=== PATIENT | male | born 1945 | race Caucasian/White ===

== ENCOUNTER 2017-02-05 16:39 | Inpatient (IN) | payer MEDICARE ==
[~2017-02-05] VITALS: Ht 180.3 cm; Wt 106.6 kg
[~2017-02-05 16:39] MED LIST: AMITRIPTYLINE H10 MG PO; ENBREL50 MG/1 ML IM; IRON SUPPLEMEN325 MG PO; LYRICA75 MG PO; NEXIUM40 MG PO; PEPTO-BISM262 MG/15; ULTRAM50 MG PO; VESICARE5 MG PO; VITAMIN B12-FO1 EACH PO; VITAMIN D2000 UNIT PO; ZANAFLEX2 M1 PO; ZANTAC150 MG PO
[2017-02-05] MEDS ORDERED: ASPIRIN 81 MG CHEW TAB PO ONE (18:15)
[2017-02-05 18:34] LABS: CLARITY,URINE CLOUDY (CLEAR); KETONES,URINE TRACE (NEGATIVE); LEUKOCYTE ESTERASE ,URINE 2+ (NEGATIVE); URINE UROBILINOGEN 0.2 mg/dL (0.2 - 1)
[2017-02-05 18:35] LABS: BILIRUBIN,URINE 1+ (NEGATIVE); NITRITE,URINE POSITIVE (NEGATIVE); PROTEIN,URINE DIPSTICK 1+ (NEGATIVE)
[2017-02-05 18:45] LABS: BACTERIA,URINE MANY /HPF; COLOR,URINE AMBER (YELLOW); EPITHELIAL CELLS,URINE RARE /LPF; MUCUS,URINE FEW (RARE); RBC,URINE 21-50 /HPF (0-5); WBC,URINE (MAN) 21-50 /HPF (0-5)
[2017-02-05 18:56] LABS: BASOPHILS % 0.2 % (0.0-1.0); HEMATOCRIT 35.7 % (38.2-49.6); HEMOGLOBIN 11.4 g/dL (14.0-18.0); LYMPHOCYTES # (AUTO) 0.7 (1.0-3.2); LYMPHOCYTES % 7.6 % (18.0-39.1); MEAN CORPUSCULAR HEMOGLOBIN 29.8 pg (28-32); MEAN CORPUSCULAR HGB CONC 31.9 g/dL (31-35); MEAN CORPUSCULAR VOLUME 93.5 fL (81-99); NEUTROPHILS % 81.9 % (38.7-80.0); PLATELET COUNT 174 x10e3/uL (140-360); RED BLOOD COUNT 3.82 x10e6/uL (4.3-5.7); RED CELL DISTRIBUTION WIDTH 14.8 % (11.7-14.4)
--- NOTE | 2017-02-05 19:17 | Diagnostic Imaging Report ---
EXAMINATION: Chest, CHEST 2 VIEWS INDICATION: Dehydration. COMPARISON: Portable chest 12/06/2015 FINDINGS: LINES: None. Heart: Normal cardiac silhouette. Vascular: The pulmonary vasculature is within normal limits. Mediastinum: No mediastinal, hilar, or axillary mass or lymphadenopathy. Lungs: No parenchymal mass. No focal consolidation. Pleura: No pleural effusion. No pneumothorax. Bones: No acute osseous abnormality. Degenerative changes of the thoracic spine. Soft tissues: Normal. Impression: No acute radiographic abnormality. Signed by: Dr. Yuri Spears M.D. on 02/05/2017 7:13 PM
[2017-02-05 19:20] LABS: CREATINE KINASE MB 0.9 ng/mL (0.00-5.00)
[2017-02-05 19:29] LABS: ALBUMIN 3.5 g/dL (3.5-5.0); ALBUMIN/GLOBULIN RATIO 0.9 (0.8-2.0); ANION GAP 16.9 mmol/L (8-16); CALCIUM 8.9 mg/dL (8.4-10.2); CREATININE, SERUM 1.3 mg/dL (0.72-1.25); POTASSIUM 3.9 mmol/L (3.5-5.1)
[2017-02-05] MEDS ORDERED: CEFTRIAXONE SOD 1 GM VIAL IV STA (19:29)
[2017-02-05] MEDS ORDERED: SODIUM CHLORIDE 0.9% 1000ML 1,000 ML IV ONE (19:30)
[2017-02-05] MEDS ORDERED: ACETAMINOPHEN 1000 MG/100 ML IV ONE (20:00)
--- NOTE | 2017-02-05 21:08 | Diagnostic Imaging Report ---
EXAM: CT Abdomen and Pelvis WITHOUT contrast INDICATION: Abdominal pain COMPARISON: None. TECHNIQUE: Abdomen and pelvis were scanned utilizing a multidetector helical scanner from the lung base to the pubic symphysis. Coronal and sagittal reformations were obtained. The lack of intravenous contrast limits the evaluation of the solid organs, vasculature, and possible lymphadenopathy. Protocol: General survey without contrast IV CONTRAST: No intravenous contrast was administered as per physician request. ORAL CONTRAST: None. COMPLICATIONS: None. RADIATION DOSE: Total Exam DLP: 812.5 mGy*cm. CTDIvol has been reviewed. It is below the limits set by the Radiation Protocol Committee (RPC). FINDINGS: LINES: None. Lower thorax: No parenchymal abnormality. No pneumothorax. No pleural effusion. Liver: No focal mass. No hepatomegaly. Normal parenchyma. Gallbladder: No gallbladder is identified. Biliary tree: No intrahepatic duct dilation. No extrahepatic duct dilation. Spleen: No splenomegaly. No focal mass. Pancreas: No focal mass. Normal pancreatic duct. No peripancreatic inflammatory changes. Kidneys: No obstructing calculi. No hydronephrosis. No cysts. Minimal bilateral perinephric soft tissue inflammatory changes. A right ureteral stent is present with the distal coil within the urinary bladder and the proximal coil within the renal pelvis. Several punctate calculi are present in the right kidney. The right renal pelvis is prominent, without evidence of hydronephrosis. Adrenal glands: No adrenal nodules.. Bladder: Normal urinary bladder. Pelvic organs: Normal. GI: Postoperative changes of the stomach. No bowel wall thickening. No air-fluid levels. The stomach and small bowel are normal. The colon is normal. Normal appendix. A moderate amount of retained feces limits intraluminal evaluation of the colon. Peritoneum/retroperitoneum: No pneumoperitoneum. No ascites. No drainable fluid collection. Lymph nodes: No lymphadenopathy. . Vessels: No focal abnormality. Atherosclerotic calcifications. Limited evaluation. Bones: No focal abnormality. Degenerative changes of the lumbar spine. Soft tissues: No focal abnormality. IMPRESSION: Right nonobstructing nephrolithiasis. Right ureteral stent in proper position. Signed by: Dr. Yuri Spears M.D. on 02/05/2017 9:04 PM
[2017-02-05] MEDS ORDERED: TRAMADOL HCL 50 MG TAB PO PRN (21:30)
[2017-02-05] MEDS: CEFTRIAXONE SOD 1 GM VIAL IV SCH (22:00)
[2017-02-05] MEDS: SODIUM CHLORIDE 0.9% 1000ML 1,000 ML IV SCH (22:32)
[2017-02-05] MEDS ORDERED: ACETAMINOPHEN 325 MG TAB PO PRN (22:45)
[2017-02-05] MEDS: ROPINIROLE HCL 1 MG TAB PO SCH (23:01)
[2017-02-05 23:34] VITALS: BP 171/89
[2017-02-06 00:42] VITALS: BP 171/89
[2017-02-06] MEDS: ONDANSETRON HCL INJ 2 MG/ML VIAL IV PRN ×2 (00:42→18:45)
[2017-02-06] MEDS: SODIUM CHLORIDE 0.9% 1000ML 1,000 ML IV SCH ×4 (00:42→20:45)
[2017-02-06 05:01] VITALS: BP 164/88
[2017-02-06 07:10] LABS: BASOPHILS % 0.3 % (0.0-1.0); EOSINOPHILS % 0.1 % (0.0-6.0); HEMATOCRIT 32.7 % (38.2-49.6); HEMOGLOBIN 10.3 g/dL (14.0-18.0); LYMPHOCYTES # (AUTO) 0.7 (1.0-3.2); LYMPHOCYTES % 9.2 % (18.0-39.1); MEAN CORPUSCULAR HEMOGLOBIN 29.5 pg (28-32); MEAN CORPUSCULAR HGB CONC 31.5 g/dL (31-35); MEAN CORPUSCULAR VOLUME 93.7 fL (81-99); MONOCYTES # (AUTO) 0.9 (0.2-0.8); MONOCYTES % 12.1 % (4.4-11.3); PLATELET COUNT 149 x10e3/uL (140-360); RED BLOOD COUNT 3.49 x10e6/uL (4.3-5.7); RED CELL DISTRIBUTION WIDTH 14.6 % (11.7-14.4)
[2017-02-06 07:37] LABS: ALANINE AMINOTRANSFERASE 21 IU/L (0-55); ALBUMIN/GLOBULIN RATIO 0.9 (0.8-2.0); ALKALINE PHOSPHATASE 58 IU/L (40-150); ANION GAP 11.4 mmol/L (8-16); BLOOD UREA NITROGEN 18 mg/dL (7-26); BUN/CREATININE RATIO 17 (6-25); CALCIUM 8.3 mg/dL (8.4-10.2); CARBON DIOXIDE 26 mmol/L (22-29); CHLORIDE 105 mmol/L (98-107); CREATININE, SERUM 1.03 mg/dL (0.72-1.25); EST GLOMERULAR FILTRATION RATE > 60 ML/MIN (60-); GLUCOSE 110 mg/dL (74-118); POTASSIUM 3.4 mmol/L (3.5-5.1); SODIUM 139 mmol/L (136-145)
[2017-02-06 08:16] LABS: CHOL/HDL RATIO 3.8 (3.9-4.7)
[2017-02-06] MEDS: PANTOPRAZOLE SOD 40 MG TABEC PO SCH (09:00)
[2017-02-06] MEDS: AMITRIPTYLINE HCL 10 MG TAB PO SCH (09:00)
[2017-02-06] MEDS: FERROUS SULFATE 325 MG TAB PO SCH (09:00)
[2017-02-06] MEDS: CHOLECALCIFEROL 1,000 UNIT TAB PO SCH (09:00)
[2017-02-06] MEDS: SOLIFENACIN SUCCINATE 5 MG TAB PO SCH (09:00)
[2017-02-06] MEDS: FOLIC ACID/CYANOCOB/PYRIDOXINE TAB PO SCH (09:00)
[2017-02-06] MEDS: PREGABALIN 75 MG CAP PO SCH (09:00)
[2017-02-06] MEDS: TIZANIDINE HCL 4 MG TAB PO SCH (09:00)
[2017-02-06] MEDS ORDERED: FAMOTIDINE 20 MG TAB PO SCH (09:00)
[2017-02-06 09:26] VITALS: BP 164/84
[2017-02-06 12:11] VITALS: BP 121/67
--- NOTE | 2017-02-06 16:24 | History and Physical ---
PRIMARY CARE PHYSICIAN: Dr. Kaye. CHIEF COMPLAINT: Burning urination. HISTORY OF PRESENT ILLNESS: This is a 72-year-old man with a history of nephrolithiasis and right renal stent now developing burning urination for one week without any fever, chills or sweats. No nausea, vomiting, no diarrhea. He came to the hospital for further evaluation and management. Here he was found to have urinary tract infection. PAST MEDICAL HISTORY: Right-sided nephrolithiasis, status post stent. PAST SURGICAL HISTORY: Right kidney stent, cholecystectomy. ALLERGIES: PER ELECTRONIC MEDICAL RECORDS. FAMILY HISTORY/SOCIAL HISTORY: The patient is and has 2 children. No alcohol, illicits or cigarettes. MEDICATIONS: Per electronic medical records. REVIEW OF SYSTEMS: Denies any dizziness, chest pain. PHYSICAL EXAMINATION VITAL SIGNS: Reviewed. GENERAL APPEARANCE: A tired-appearing man resting in the bed. HEENT: Anicteric. Pupils responsive to light. No oral lesions. CARDIOVASCULAR: Normal S1 and S2. LUNGS: Moderate breath sounds, ABDOMEN: Soft and nondistended. He has tenderness in his suprapubic region. EXTREMITIES: There is no edema. He does have chronic skin changes of his lower extremities. Right flank with unclear tenderness may be present. NEUROLOGIC: Alert and oriented x3. SKIN: Dry. PSYCHIATRIC: Flat affect. LABS: Reviewed. MEDICATIONS: Reviewed. ASSESSMENT AND PLAN: A 72-year-old man. 1. Urinary tract infection and possible right-sided pyelonephritis. Will continue IV ceftriaxone and follow up cultures. 2. Dehydration/acute kidney injury. Will use iv fluids. 3. Right nephrolithiasis. He does have stent in place. Will monitor and decide if urology needs to see him. His urologist does not normally come here. 4. Normocytic anemia, mild. Will follow. 5. Obesity. BMI 32.8. Will screen the patient for diabetes, obtain a lipid panel. 6. Prophylaxis: Will use proton pump inhibitor and SCDs. DISPOSITION: Monitor closely. Job#: [id number]
[2017-02-06 16:29] VITALS: BP 132/68
[2017-02-06] MEDS: HYDROMORPHONE 1MG/1ML INJ IV PRN (18:45)
[2017-02-06 20:14] VITALS: BP 146/89
[2017-02-06] MEDS: CEFTRIAXONE SOD 1 GM VIAL IV SCH (20:45)
[2017-02-06] MEDS: ROPINIROLE HCL 1 MG TAB PO SCH (20:45)
[2017-02-07 00:16] VITALS: BP 137/71
[2017-02-07] MEDS: HYDROMORPHONE 1MG/1ML INJ IV PRN ×4 (00:57→20:50)
[2017-02-07] MEDS: ONDANSETRON HCL INJ 2 MG/ML VIAL IV PRN ×4 (01:00→22:39)
[2017-02-07 05:17] VITALS: BP 125/72
[2017-02-07] MEDS: SODIUM CHLORIDE 0.9% 1000ML 1,000 ML IV SCH ×3 (06:17→20:48)
[2017-02-07 08:12] VITALS: BP 146/84
[2017-02-07] MEDS: FOLIC ACID/CYANOCOB/PYRIDOXINE TAB PO SCH (09:10)
[2017-02-07] MEDS: FERROUS SULFATE 325 MG TAB PO SCH (09:10)
[2017-02-07] MEDS: AMITRIPTYLINE HCL 10 MG TAB PO SCH (09:10)
[2017-02-07] MEDS: SOLIFENACIN SUCCINATE 5 MG TAB PO SCH (09:10)
[2017-02-07] MEDS: PANTOPRAZOLE SOD 40 MG TABEC PO SCH (09:10)
[2017-02-07] MEDS: CHOLECALCIFEROL 1,000 UNIT TAB PO SCH (09:10)
[2017-02-07] MEDS: PREGABALIN 75 MG CAP PO SCH (09:10)
[2017-02-07] MEDS: TIZANIDINE HCL 4 MG TAB PO SCH (09:10)
[2017-02-07 12:41] VITALS: BP 108/64
[2017-02-07 16:38] VITALS: BP 152/68
[2017-02-07] MEDS: ROPINIROLE HCL 1 MG TAB PO SCH (20:47)
[2017-02-07] MEDS: CEFTRIAXONE SOD 1 GM VIAL IV SCH (20:48)
[2017-02-07 21:19] VITALS: BP 155/74
[2017-02-08] VITALS: BP 132/67
[2017-02-08 04:00] VITALS: BP 108/65
[2017-02-08] MEDS: SODIUM CHLORIDE 0.9% 1000ML 1,000 ML IV SCH ×3 (06:33→21:24)
--- NOTE | 2017-02-08 07:40 | Consultation ---
DATE OF CONSULTATION: February 06, 2017 UROLOGY CONSULTATION CHIEF UROLOGIC COMPLAINT/REASON FOR CONSULTATION: Indwelling ureteral stent. HISTORY OF PRESENT ILLNESS: Pb Hall is a 72-year-old male who had stone procedures and a stent placed by Dr. Nick Humphreys. He now presented to the emergency room with fevers, chills, right-sided flank pain, and hematuria. PAST MEDICAL HISTORY: As above. MEDICATIONS: Please see MAR. ALLERGIES: NKDA. SOCIAL HISTORY: No smoking. No drinking. FAMILY HISTORY: Denies any urological procedures. REVIEW OF SYSTEMS: Noncontributory and per HPI. PHYSICAL EXAMINATION GENERAL: Elderly male in no acute distress. VITALS: Temperature 96.6, pulse 81, respirations 17, blood pressure 121/67. HEENT: Sclerae are anicteric. NECK: Supple. BACK: Without costovertebral angle tenderness bilaterally. ABDOMEN: Soft, nontender and nondistended. There is no palpable mass. No palpable hernias. No palpable adenopathy. : Normal external genitalia. EXTREMITIES: No edema of lower extremities. PSYCH: Alert and appropriate mood. SKIN: Intact. PERTINENT LABORATORY DATA: CT scan revealing a right-sided stent, punctate right kidney stones. Sodium 139, potassium 3.4, chloride 105, bicarb 26, BUN 18, creatinine 1.03, and glucose 110. Hemoglobin 10, hematocrit 32, platelet count 149,000. white cell count 7700. Urinalysis with 21-50 reds and 21-50 whites. IMPRESSION 1. Indwelling right renal stent. 2. Right kidney stones. 3. Hypokalemia. 4. Urinary tract infection/pyelonephritis. 5. Microscopic hematuria. PLAN: The patient was given broad-spectrum antibiotics. Hematuria is expected with the stent. Will place the patient on culture-specific antibiotics and discharge to follow with stent removal with his primary urologist. Thank you for allowing me to participate in the care of this patient. Will be happy to follow along with you. Job#: [id number] RI cc:PAULIE ROWELL MD
[2017-02-08 07:51] VITALS: BP 153/69
[2017-02-08] MEDS: CHOLECALCIFEROL 1,000 UNIT TAB PO SCH (09:35)
[2017-02-08] MEDS: PREGABALIN 75 MG CAP PO SCH ×2 (09:35→21:00)
[2017-02-08] MEDS: PANTOPRAZOLE SOD 40 MG TABEC PO SCH (09:35)
[2017-02-08] MEDS: FERROUS SULFATE 325 MG TAB PO SCH (09:35)
[2017-02-08] MEDS: FOLIC ACID/CYANOCOB/PYRIDOXINE TAB PO SCH (09:35)
[2017-02-08] MEDS: AMITRIPTYLINE HCL 10 MG TAB PO SCH (09:35)
[2017-02-08] MEDS: SOLIFENACIN SUCCINATE 5 MG TAB PO SCH (09:35)
[2017-02-08] MEDS: TIZANIDINE HCL 4 MG TAB PO SCH ×2 (09:36→22:00)
[2017-02-08 11:23] VITALS: BP 140/67
[2017-02-08] MEDS ORDERED: POTASSIUM CHLORIDE 20 MEQ TAB CR PO STA (13:12)
[2017-02-08 16:00] VITALS: BP 153/69
[2017-02-08] MEDS: HYDROMORPHONE 1MG/1ML INJ IV PRN (18:39)
[2017-02-08 19:30] VITALS: BP 143/74
[2017-02-08] MEDS: ROPINIROLE HCL 1 MG TAB PO SCH (21:00)
[2017-02-08] MEDS: TRAMADOL HCL 50 MG TAB PO SCH ×2 (21:00→23:43)
[2017-02-08] MEDS: CEFTRIAXONE SOD 1 GM VIAL IV SCH (21:30)
[2017-02-09] VITALS: BP 119/66
[2017-02-09] MEDS: ONDANSETRON HCL INJ 2 MG/ML VIAL IV PRN (01:41)
[2017-02-09] MEDS: HYDROMORPHONE 1MG/1ML INJ IV PRN (01:41)
[2017-02-09] MEDS: SODIUM CHLORIDE 0.9% 1000ML 1,000 ML IV SCH ×2 (03:00→12:58)
[2017-02-09 04:00] VITALS: BP 151/85
[2017-02-09] MEDS: TIZANIDINE HCL 4 MG TAB PO SCH ×3 (06:00→21:16)
[2017-02-09] MEDS: TRAMADOL HCL 50 MG TAB PO SCH ×3 (06:00→18:00)
[2017-02-09 06:43] LABS: BASOPHILS % 0.5 % (0.0-1.0); EOSINOPHILS # (AUTO) 0.2 (0.0-0.4); EOSINOPHILS % 3.1 % (0.0-6.0); HEMATOCRIT 30.7 % (38.2-49.6); HEMOGLOBIN 9.8 g/dL (14.0-18.0); LYMPHOCYTES # (AUTO) 1.8 (1.0-3.2); LYMPHOCYTES % 24.7 % (18.0-39.1); MEAN CORPUSCULAR HEMOGLOBIN 29.3 pg (28-32); MEAN CORPUSCULAR HGB CONC 31.9 g/dL (31-35); MEAN CORPUSCULAR VOLUME 91.6 fL (81-99); MONOCYTES # (AUTO) 0.8 (0.2-0.8); MONOCYTES % 10.8 % (4.4-11.3); NEUTROPHILS # (AUTO) 4.5 (2.1-6.9); NEUTROPHILS % 60.5 % (38.7-80.0); PLATELET COUNT 174 x10e3/uL (140-360); RED BLOOD COUNT 3.35 x10e6/uL (4.3-5.7); RED CELL DISTRIBUTION WIDTH 14.3 % (11.7-14.4)
[2017-02-09 07:12] LABS: ANION GAP 11.3 mmol/L (8-16); BLOOD UREA NITROGEN 16 mg/dL (7-26); BUN/CREATININE RATIO 17 (6-25); CALCIUM 8.5 mg/dL (8.4-10.2); CARBON DIOXIDE 26 mmol/L (22-29); CHLORIDE 109 mmol/L (98-107); CREATININE, SERUM 0.92 mg/dL (0.72-1.25); EST GLOMERULAR FILTRATION RATE > 60 ML/MIN (60-); GLUCOSE 97 mg/dL (74-118); MAGNESIUM 1.9 MG/DL (1.3-2.1); POTASSIUM 3.3 mmol/L (3.5-5.1); SODIUM 143 mmol/L (136-145)
[2017-02-09 07:53] VITALS: BP 101/65
[2017-02-09] MEDS: FERROUS SULFATE 325 MG TAB PO SCH (09:00)
[2017-02-09] MEDS: SOLIFENACIN SUCCINATE 5 MG TAB PO SCH (09:00)
[2017-02-09] MEDS: PREGABALIN 75 MG CAP PO SCH ×2 (09:00→17:00)
[2017-02-09] MEDS: PANTOPRAZOLE SOD 40 MG TABEC PO SCH (09:00)
[2017-02-09] MEDS: FOLIC ACID/CYANOCOB/PYRIDOXINE TAB PO SCH (09:00)
[2017-02-09] MEDS: AMITRIPTYLINE HCL 10 MG TAB PO SCH (09:00)
[2017-02-09] MEDS: CHOLECALCIFEROL 1,000 UNIT TAB PO SCH (09:00)
[2017-02-09] MEDS ORDERED: MAGNESIUM HYDROXIDE 30 ML UDC PO ONE ×2 (12:15→16:00)
[2017-02-09] MEDS ORDERED: POTASSIUM CHLORIDE 20 MEQ TAB CR PO ONE (12:20)
[2017-02-09 13:13] VITALS: BP 156/80
[2017-02-09 16:58] VITALS: BP 105/57
[2017-02-09] MEDS: ROPINIROLE HCL 1 MG TAB PO SCH (18:19)
[2017-02-09 20:00] VITALS: BP 150/83
[2017-02-09] MEDS: CEFTRIAXONE SOD 1 GM VIAL IV SCH (21:15)
[2017-02-10] VITALS: BP 148/86
[2017-02-10] MEDS: ONDANSETRON HCL INJ 2 MG/ML VIAL IV PRN ×2 (01:33→08:15)
[2017-02-10] MEDS: HYDROMORPHONE 1MG/1ML INJ IV PRN ×2 (01:33→08:15)
[2017-02-10 04:00] VITALS: BP 145/73
[2017-02-10] MEDS: TIZANIDINE HCL 4 MG TAB PO SCH ×2 (05:03→13:26)
[2017-02-10] MEDS: SODIUM CHLORIDE 0.9% 1000ML 1,000 ML IV SCH (05:03)
[2017-02-10] MEDS: TRAMADOL HCL 50 MG TAB PO SCH ×3 (05:03→12:46)
[2017-02-10 06:56] LABS: BASOPHILS % 0.6 % (0.0-1.0); EOSINOPHILS # (AUTO) 0.2 (0.0-0.4); EOSINOPHILS % 3.2 % (0.0-6.0); HEMATOCRIT 30.5 % (38.2-49.6); HEMOGLOBIN 9.7 g/dL (14.0-18.0); LYMPHOCYTES # (AUTO) 1.6 (1.0-3.2); MEAN CORPUSCULAR HEMOGLOBIN 29.4 pg (28-32); MEAN CORPUSCULAR HGB CONC 31.8 g/dL (31-35); MEAN CORPUSCULAR VOLUME 92.4 fL (81-99); MONOCYTES # (AUTO) 0.6 (0.2-0.8); MONOCYTES % 8.8 % (4.4-11.3); NEUTROPHILS # (AUTO) 4.4 (2.1-6.9); NEUTROPHILS % 63.8 % (38.7-80.0); PLATELET COUNT 195 x10e3/uL (140-360); RED CELL DISTRIBUTION WIDTH 14.4 % (11.7-14.4)
[2017-02-10 07:35] LABS: ANION GAP 11.3 mmol/L (8-16); BLOOD UREA NITROGEN 16 mg/dL (7-26); BUN/CREATININE RATIO 17 (6-25); CALCIUM 8.4 mg/dL (8.4-10.2); CARBON DIOXIDE 27 mmol/L (22-29); CHLORIDE 107 mmol/L (98-107); CREATININE, SERUM 0.92 mg/dL (0.72-1.25); EST GLOMERULAR FILTRATION RATE > 60 ML/MIN (60-); GLUCOSE 98 mg/dL (74-118); MAGNESIUM 1.8 MG/DL (1.3-2.1); POTASSIUM 3.3 mmol/L (3.5-5.1); SODIUM 142 mmol/L (136-145)
[2017-02-10 07:53] VITALS: BP 142/74
[2017-02-10] MEDS: AMITRIPTYLINE HCL 10 MG TAB PO SCH (08:45)
[2017-02-10] MEDS: PANTOPRAZOLE SOD 40 MG TABEC PO SCH (08:45)
[2017-02-10] MEDS: CHOLECALCIFEROL 1,000 UNIT TAB PO SCH (08:45)
[2017-02-10] MEDS: FERROUS SULFATE 325 MG TAB PO SCH (08:45)
[2017-02-10] MEDS: FOLIC ACID/CYANOCOB/PYRIDOXINE TAB PO SCH (08:45)
[2017-02-10] MEDS: SOLIFENACIN SUCCINATE 5 MG TAB PO SCH (08:45)
[2017-02-10] MEDS: PREGABALIN 75 MG CAP PO SCH (09:00)
[2017-02-10] MEDS ORDERED: AUGMENTIN 875-1 EACH PO (15:32)
--- NOTE | 2017-02-11 04:53 | Discharge Summary ---
This is a 72-year-old male with a past medical history of nephrolithiasis and right renal stent who presents with burning urination times 1 week. ADMITTING DIAGNOSES 1. Indwelling right renal stent. 2. Right kidney stones. 3. Hypokalemia. 4. Urinary tract infection, pyelonephritis. 5. Microscopic hematuria. DISCHARGE DIAGNOSES 1. Indwelling right renal stent. 2. Right kidney stones. 3. Hypokalemia. 4. Urinary tract infection, pyelonephritis. 5. Microscopic hematuria. HOSPITAL COURSE: Patient was started on IV antibiotics. Cultures were done. Urology was consulted. Patient was given IV fluids. Electrolytes were replaced. Patient continued to improve and was stable for discharge home. DISCHARGE CONDITION: Stable. DISPOSITION: Home. FOLLOWUP: Patient needs to follow up with urology. He has an appointment tomorrow. Patient also needs to follow up with PCP. MEDICATIONS: Patient will receive a 5-day prescription for Augmentin 1 tab p.o. b.i.d. Dictated by: NONI Newsome PAULIE ROWELL MD Job#: [id number]
== END 2017-02-10 16:13 | disposition home or self-care (01) | DRG 690 ==
LOC: ER 16:39 → ERHOLD 21:40 → MED/SURG3 22:53
PROVIDERS: ADMIT Internal Medicine; ATTEND Internal Medicine
DX: N12 Tubulo-interstitial nephritis, not specified as acute or chronic (principal); N17.9 Acute kidney failure, unspecified; N13.2 Hydronephrosis with renal and ureteral calculous obstruction; D64.9 Anemia, unspecified; R31.29 Other microscopic hematuria; N20.0 Calculus of kidney; E66.9 Obesity, unspecified; Z68.32 Body mass index [BMI] 32.0-32.9, adult; E87.6 Hypokalemia; Z96.0 Presence of urogenital implants; Z98.84 Bariatric surgery status
CPT/HCPCS: 36415; 71020; 74176; 80048; 80053; 80061; 81001; 82270; 82550; 82553; 83036; 83605; 83735; 84484; 85025; 87040; 87086; 93005; 96360; 96365; 96374; 96376; 99284; J0696; J1170; J2405; J7030

== ENCOUNTER 2017-05-27 20:52 | Observation (INO) | payer MEDICARE ==
[~2017-05-27] VITALS: Ht 177.8 cm; Wt 109.3 kg
[~2017-05-27 20:52] MED LIST changes: +AUGMENTIN 875-1 EACH PO
--- OUTSIDE RECORDS SUMMARY | 2017-05-27 20:54 | XMS REPORT ---
Author Author [facility] Address Unknown Phone Unavailable Care Team Providers Care Zyglo Inspector Name Role Phone MITRA HERNDON Unavailable Unavailable Problems This patient has no known problems. Allergies, Adverse Reactions, Alerts This patient has no known allergies or adverse reactions. Medications This patient has no known medications. Results Test Description Test Time Test Comments Text Results Atomic Results Result Comments CT ABDOMEN/PELVIS WO [place] [address] Patient Name: WILIAM RIOS MR #: [id number] : 1945 Age/Sex: 72/M Req #: [id number] Adm Physician: Ordered by: WILIAM ZARATE MD Report #: [id number] Location: ER Room/Bed: ___ Procedure: [id number] CT/CT ABDOMEN/PELVIS WO Exam Date: 02/05/17 Exam Time: 1999 REPORT STATUS: Signed EXAM: CT Abdomen and Pelvis WITHOUT contrast INDICATION: Abdominal pain COMPARISON: None. TECHNIQUE: Abdomen and pelvis were scanned utilizing a multidetector helical scanner from the lung base to the pubic symphysis. Coronal and sagittal reformations were obtained. The lack of intravenous contrast limits the evaluation of the solid organs, vasculature, and possible lymphadenopathy. Protocol: General survey without contrast IV CONTRAST : No intravenous contrast was administered as per physician request. ORAL CONTRAST: None. COMPLICATIONS: None. RADIATION DOSE: Total Exam DLP: 812.5 mGy*cm. CTDIvol has been reviewed. It is below the limits set by the Radiation Protocol Committee (RPC). FINDINGS: LINES: None. Lower thorax: No parenchymal abnormality. No pneumothorax. No pleural effusion. Liver: No focal mass. No hepatomegaly. Normal parenchyma. Gallbladder: No gallbladder is identified. Biliary tree: No intrahepatic duct dilation. No extrahepatic duct dilation. Spleen: No splenomegaly. No focal mass. Pancreas: No focal mass. Normal pancreatic duct. No peripancreatic inflammatory changes. Kidneys: No obstructing calculi. No hydronephrosis. No cysts. Minimal bilateral perinephric soft tissue inflammatory changes. A right ureteral stent is present with the distal coil within the urinary bladder and the proximal coil within the renal pelvis. Several punctate calculi are present in the right kidney. The right renal pelvis is prominent, without evidence of hydronephrosis. Adrenal glands: No adrenal nodules.. Bladder: Normal urinary bladder. Pelvic organs: Normal. GI: Postoperative changes of the stomach. No bowel wall thickening. No air-fluid levels. The stomach and small bowel are normal. The colon is normal. Normal appendix. A moderate amount of retained feces limits intraluminal evaluation of the colon. Peritoneum/retroperitoneum: No pneumoperitoneum. No ascites. No drainable fluid collection. Lymph nodes: No lymphadenopathy. . Vessels: No focal abnormality. Atherosclerotic calcifications. Limited evaluation. Bones: No focal abnormality. Degenerative changes of the lumbar spine. Soft tissues: No focal abnormality. IMPRESSION: Right nonobstructing nephrolithiasis. Right ureteral stent in proper position. Signed by: Dr. Omar Montgomery M.D. on 02/05/2017 9:04 PM Dictated By: OMAR MONTGOMERY MD 03 Transcribed By: ASHER on 02/05/172103 COPY TO: WILIAM ZARATE MD CHEST 2 VIEWS [place] [address] Patient Name: WILIAM RIOS MR #: [id number] : 1945 Age/Sex: 72/M Req # : [id number] Adm Physician: Ordered by: MITRA HERNDON MD Report #: [id number] Location: ER Room/Bed: Procedure: [id number] DX/CHEST 2 VIEWS Exam Date: Exam Time: REPORT STATUS: Signed EXAMINATION: Chest, CHEST 2 VIEWS INDICATION : Dehydration. COMPARISON: Portable chest 12/06/2015 FINDINGS: LINES: None. Heart: Normal cardiac silhouette. Vascular: The pulmonary vasculature is within normal limits. Mediastinum: No mediastinal, hilar, or axillary mass or lymphadenopathy. Lungs: No parenchymal mass. No focal consolidation. Pleura: No pleural effusion. No pneumothorax. Bones: No acute osseous abnormality. Degenerative changes of the thoracic spine. Soft tissues: Normal. Impression: No acute radiographic abnormality. Signed by: Dr. Omar Montgomery M.D. on 7:13 PM Dictated By: OMAR MONTGOMERY MD 12 Transcribed By: ASHER on 02/05/171912 COPY TO: MITRA HERNDON MD
[2017-05-27 21:22] LABS: BASOPHILS # (AUTO) 0.1 (0.0-0.1); BASOPHILS % 0.6 % (0.0-1.0); EOSINOPHILS # (AUTO) 0.1 (0.0-0.4); EOSINOPHILS % 1.5 % (0.0-6.0); HEMATOCRIT 45.3 % (38.2-49.6); HEMOGLOBIN 14.9 g/dL (14.0-18.0); LYMPHOCYTES # (AUTO) 2.4 (1.0-3.2); LYMPHOCYTES % 29.1 % (18.0-39.1); MEAN CORPUSCULAR HEMOGLOBIN 28.7 pg (28-32); MEAN CORPUSCULAR HGB CONC 32.9 g/dL (31-35); MEAN CORPUSCULAR VOLUME 87.1 fL (81-99); MONOCYTES # (AUTO) 0.9 (0.2-0.8); MONOCYTES % 10.9 % (4.4-11.3); NEUTROPHILS # (AUTO) 4.8 (2.1-6.9); NEUTROPHILS % 57.7 % (38.7-80.0); PLATELET COUNT 205 x10e3/uL (140-360); RED CELL DISTRIBUTION WIDTH 13.5 % (11.7-14.4)
[2017-05-27 21:37] LABS: ALBUMIN 4.1 g/dL (3.5-5.0); ALBUMIN/GLOBULIN RATIO 1.1 (0.8-2.0); ANION GAP 14.4 mmol/L (8-16); CALCIUM 9.6 mg/dL (8.4-10.2); CREATININE, SERUM 1.33 mg/dL (0.72-1.25); POTASSIUM 4.4 mmol/L (3.5-5.1)
[2017-05-27 21:43] LABS: CREATINE KINASE MB 1.9 ng/mL (0-5.0)
--- NOTE | 2017-05-27 21:55 | Diagnostic Imaging Report ---
CHEST 2 VIEWS, Technique: CHEST 2 VIEWS Comparison: 02/05/2017 Clinical history: Chest pain DISCUSSION: Unremarkable appearance of the heart, mediastinum, lungs and pleural spaces. Scattered degenerative changes. IMPRESSION: No acute abnormality Signed by: Dr Lenore Mitchell MD on 05/27/2017 9:52 PM
[2017-05-27 22:16] LABS: BILIRUBIN,URINE NEGATIVE (NEGATIVE); CLARITY,URINE SL CLOUDY (CLEAR); COLOR,URINE YELLOW (YELLOW); KETONES,URINE NEGATIVE (NEGATIVE); LEUKOCYTE ESTERASE ,URINE NEGATIVE (NEGATIVE); NITRITE,URINE NEGATIVE (NEGATIVE); PROTEIN,URINE DIPSTICK NEGATIVE (NEGATIVE); URINE UROBILINOGEN 0.2 mg/dL (0.2 - 1)
[2017-05-27 22:23] LABS: RBC,URINE 0-5 /HPF (0-5)
[2017-05-28] MEDS ORDERED: ACETAMINOPHEN 325 MG TAB ONE (00:48)
[2017-05-28] MEDS ORDERED: ONDANSETRON HCL INJ 2 MG/ML VIAL IV PRN (01:00)
[2017-05-28] MEDS ORDERED: NITROGLYCERIN 0.4 MG SUBL SL PRN (01:00)
[2017-05-28] MEDS ORDERED: SODIUM CHLORIDE FLUSH 10 ML SYR INJ PRN (01:00)
[2017-05-28] MEDS ORDERED: ACETAMINOPHEN 325 MG TAB PO ONE (01:15)
[2017-05-28] MEDS ORDERED: TRAMADOL HCL 50 MG TAB PO PRN (06:45)
[2017-05-28] MEDS ORDERED: CYMBALTA20 MG PO (06:50)
[2017-05-28] MEDS ORDERED: ROPINIROLE HCL1 MG PO (06:50)
[2017-05-28] MEDS ORDERED: ASPIRIN 81 MG ENTERIC COATED PO SCH (09:00)
[2017-05-28] MEDS ORDERED: TIZANIDINE HCL 4 MG TAB PO SCH (09:00)
[2017-05-28] MEDS ORDERED: PREGABALIN 75 MG CAP PO SCH (09:00)
[2017-05-28 09:06] LABS: CREATINE KINASE 123 IU/L (30-200)
[2017-05-28 12:10] VITALS: BP 116/68
[2017-05-28 12:27] VITALS: BP 116/68
== END 2017-05-28 13:57 | disposition home or self-care (01) ==
LOC: ER 20:52 → ERHOLD 05-28 01:33 → IMCU 05-28 10:53
PROVIDERS: ADMIT Internal Medicine; ATTEND Internal Medicine
DX: R07.89 Other chest pain (principal); I48.92 Unspecified atrial flutter; Z87.891 Personal history of nicotine dependence
CPT/HCPCS: 36415 ×2; 71046; 80053; 81001; 82550 ×2; 82553 ×2; 84484 ×2; 85025; 93005; 99284; G0378

== ENCOUNTER 2017-07-11 16:58 | Emergency (ER) | payer MEDICARE ==
[~2017-07-11] VITALS: Ht 177.8 cm; Wt 113.4 kg
[~2017-07-11 16:58] MED LIST changes: +CYMBALTA20 MG PO; +ROPINIROLE HCL1 MG PO
--- OUTSIDE RECORDS SUMMARY | 2017-07-11 17:00 | XMS REPORT | Continuity of Care Document ---
Author Author [facility] Organization [facility] Address [address] [place] [address] Phone Unavailable Care Team Providers Care Senior Accountant Cpa Name Role Phone NONSTAFF PCP Unavailable Insurance Providers Guarantor Pb Hall Address [address] [place] [address] Email [email or web address] Medicare Advantage Policy Number [id number] Subscriber's Name Pb Hall Relationship 18 Self / Same As Patient Effective Date 14 Advance Directives Directive Response Recorded Date/Time Does the patient have an advance directive? No 05/28/17 11:54am If yes, is advance directive on file with [facility]? No 05/28/17 11:54am If not on file with [facility] will patient provide a copy? Yes 05/28/17 11:54am Do you have a Directive to Physician? No 05/28/17 1:26am Do you have a Medical Power of Lumber Sticker? No 05/28/17 1:26am Do you have an out of hospital Do Not Resuscitate Order? No 05/28/17 1:26am Do you have any special needs we should be aware of? No 05/28/17 1:26am Do you have a support person here with you today? Yes 05/28/17 1:26am Did patient receive Notice of Privacy Practices? Yes 05/28/17 1:26am Did patient receive patient rights and responsibilities? Yes 05/28/17 1:26am Problems Medical Problem Onset Date Status Chest pain Unknown Fever Unknown Shoulder pain Unknown Acute UTI (urinary tract infection) Unknown Medications Current Home Medications Medication Dose Units Route Directions Days Qty Instructions Start Date Cholecalciferol (Vitamin D3) (Vitamin D) 2,000 Unit Capsule 4,000 Unit Oral Daily Cyanocobalamin/Folic Acid (Vitamin B49-Hxclj Acid Tablet) 1 Each Tablet 1 Each Oral Daily Duloxetine Hcl (Cymbalta) 20 Mg Capcr 20 Mg Oral Daily 30 Cap Etanercept (Enbrel) 50 Mg/1 Ml Disp.syrin 50 Mg Intramusc Ferrous Sulfate (Iron Supplement) 325 Mg Tablet 325 Mg Oral Daily Pregabalin (Lyrica) Unknown Strength Cap 75 Mg Oral Daily 30 Cap Ropinirole Hcl 1 Mg Tablet 1 Mg Oral Bedtime 30 Tab Solifenacin Succinate (Vesicare) 5 Mg Tablet 5 Mg Oral Daily 30 Tab Tizanidine Hcl (Zanaflex) Unknown Strength Capsule 4 Mg Oral Daily Tramadol Hcl (Ultram) 50 Mg Tablet 50 Mg Oral Every 6 Hours as needed for Pain Social History Social History Problem Response Recorded Date/Time Onset Date Status Hx Psychiatric Problems No 05/28/2017 11:54am Not Applicable Not Applicable Hx Eating Disorder No 05/28/2017 11:54am Not Applicable Not Applicable Hx Substance Use Disorder No 05/28/2017 11:54am Not Applicable Not Applicable Hx Depression No 05/28/2017 11:54am Not Applicable Not Applicable Hx Alcohol Use No 05/28/2017 11:54am Not Applicable Not Applicable Hx Substance Use Treatment No 05/28/2017 11:54am Not Applicable Not Applicable Hx Physical Abuse No 05/28/2017 11:54am Not Applicable Not Applicable Smoking Status Start Date Stop Date Never Smoker Hospital Discharge Instructions No hospital discharge instruction information available. Plan of Care Discharge Date 05/28/17 1:57pm Disposition HOME, SELF-CARE Instructions/Education Provided Chest Pain - Noncardiac Chest Pain - Chest Wall Prescriptions See Medication Section Additional Instructions/Education follow up with PCP continue home medications as prescribed activity as tolerated Functional Status Query Response Date Recorded Assistive Devices None May 28, 2017 12:10pm Ambulation Ability Independent May 28, 2017 12:10pm Toileting Ability Independent May 28, 2017 12:10pm Allergies, Adverse Reactions, Alerts Allergen Type Severity Reaction Status Last Updated Morphine Allergy Unknown Active 02/05/17 Immunizations No immunization information available. Vital Signs Acute Vital Signs Vital Response Date/Time Temperature (Fahrenheit) 97.4 degrees F (97.6 - 99.5) 05/28/2017 12:27pm Pulse Pulse Rate (adult) 70 bpm (60 - 90) 05/28/2017 12:27pm Pulse Pulse Rate (adult) 70 bpm (60 - 90) 05/28/2017 12:27pm Respiratory Rate 18 bpm (12 - 24) 05/28/2017 12:27pm Blood Pressure 116/68 mm Hg 05/28/2017 12:27pm Blood Pressure 116/68 mm Hg 05/28/2017 12:27pm Height 5 ft 10 in 05/28/2017 12:27pm Weight 241.04 lb 05/28/2017 12:27pm Body Mass Index 34.6 kg/m^2 05/28/2017 12:27pm Results Laboratory Results Test Name Result Units Flags Reference Collection Date/Time Result Date/ Time Comments Urine Mucus FEW H RARE 02/05/2017 4:44pm 02/05/2017 6:45pm Hemoglobin A1c Percent 4.5 % 4.0-7.0 02/06/2017 6:27am 02/06/2017 8: 26am Lactic Acid Level 5.6 MG/DL 4.5-19.8 02/06/2017 12:00pm 02/06/2017 12: 25pm Magnesium Level 1.8 MG/DL 1.3-2.1 02/10/2017 6:16am 02/10/2017 7:38am Triglycerides Level 94 MG/DL 0-149 02/06/2017 6:27am 02/06/2017 8:26am Cholesterol Level 173 MD/DL 0-199 02/06/2017 6:27am 02/06/2017 8:26am Less than 200 mg/dL Low Risk 201 - 239 mg/dL Borderline Risk 240 mg/dl and greater High Risk LDL Cholesterol 109 MG/DL 60-130 02/06/2017 6:27am 02/06/2017 8:26am HDL Cholesterol 45 MG/DL 40-60 02/06/2017 6:27am 02/06/2017 8:26am Cholesterol/HDL Ratio 3.8 L 3.9-4.7 02/06/2017 6:27am 02/06/2017 8: 26am Stool Occult Blood NEGATIVE NEGATIVE 02/09/2017 6:30pm 02/09/2017 6: 49pm White Blood Count 8.26 x10e3/uL 4.8-10.8 05/27/2017 9:10pm 05/27/2017 9 :24pm Red Blood Count 5.20 x10e6/uL 4.3-5.7 05/27/2017 9:10pm 05/27/2017 9: 24pm Hemoglobin 14.9 g/dL 14.0-18.0 05/27/2017 9:10pm 05/27/2017 9:24pm Hematocrit 45.3 % 38.2-49.6 05/27/2017 9:10pm 05/27/2017 9:24pm Mean Corpuscular Volume 87.1 fL 81-99 05/27/2017 9:10pm 05/27/2017 9: 24pm Mean Corpuscular Hemoglobin 28.7 pg 28-32 05/27/2017 9:10pm 05/27/2017 9:24pm Mean Corpuscular Hemoglobin Concent 32.9 g/dL 31-35 05/27/2017 9:10pm 05/27/2017 9:24pm Red Cell Distribution Width 13.5 % 11.7-14.4 05/27/2017 9:10pm 2017 9:24pm Platelet Count 205 x10e3/uL 140-360 05/27/2017 9:10pm 05/27/2017 9: 24pm Neutrophils (%) (Auto) 57.7 % 38.7-80.0 05/27/2017 9:10pm 05/27/2017 9: 24pm Lymphocytes (%) (Auto) 29.1 % 18.0-39.1 05/27/2017 9:10pm 05/27/2017 9: 24pm Monocytes (%) (Auto) 10.9 % 4.4-11.3 05/27/2017 9:10pm 05/27/2017 9: 24pm Eosinophils (%) (Auto) 1.5 % 0.0-6.0 05/27/2017 9:10pm 05/27/2017 9: 24pm Basophils (%) (Auto) 0.6 % 0.0-1.0 05/27/2017 9:10pm 05/27/2017 9:24pm IM GRANULOCYTES % 0.2 % 0.0-1.0 05/27/2017 9:10pm 05/27/2017 9:24pm Neutrophils # (Auto) 4.8 2.1-6.9 05/27/2017 9:10pm 05/27/2017 9:24pm Lymphocytes # (Auto) 2.4 1.0-3.2 05/27/2017 9:10pm 05/27/2017 9:24pm Monocytes # (Auto) 0.9 H 0.2-0.8 05/27/2017 9:10pm 05/27/2017 9:24pm Eosinophils # (Auto) 0.1 0.0-0.4 05/27/2017 9:10pm 05/27/2017 9:24pm Basophils # (Auto) 0.1 0.0-0.1 05/27/2017 9:10pm 05/27/2017 9:24pm Absolute Immature Granulocyte (auto 0.02 x10e3/uL 0-0.1 05/27/2017 9: 10pm 05/27/2017 9:24pm Urine Color YELLOW YELLOW 05/27/2017 9:10pm 05/27/2017 10:16pm Urine Clarity SL CLOUDY H CLEAR 05/27/2017 9:10pm 05/27/2017 10:16pm Urine Specific [place] 1.020 1.010-1.025 05/27/2017 9:10pm 2017 10:16pm Urine pH 5 5 - 7 05/27/2017 9:10pm 05/27/2017 10:16pm Urine Leukocyte Esterase NEGATIVE NEGATIVE 05/27/2017 9:10pm 2017 10:16pm Urine Nitrite NEGATIVE NEGATIVE 05/27/2017 9:10pm 05/27/2017 10:16pm Urine Protein NEGATIVE NEGATIVE 05/27/2017 9:10pm 05/27/2017 10:16pm Urine Glucose (UA) NEGATIVE NEGATIVE 05/27/2017 9:10pm 05/27/2017 10: 16pm Urine Ketones NEGATIVE NEGATIVE 05/27/2017 9:10pm 05/27/2017 10:16pm Urine Urobilinogen 0.2 mg/dL 0.2 - 1 05/27/2017 9:10pm 05/27/2017 10: 16pm Urine Bilirubin NEGATIVE NEGATIVE 05/27/2017 9:10pm 05/27/2017 10: 16pm Urine Blood 1+ H NEGATIVE 05/27/2017 9:10pm 05/27/2017 10:16pm Urine WBC NONE /HPF 0-5 05/27/2017 9:10pm 05/27/2017 10:23pm Urine RBC 0-5 /HPF 0-5 05/27/2017 9:10pm 05/27/2017 10:23pm Urine Bacteria NONE /HPF NONE 05/27/2017 9:10pm 05/27/2017 10:23pm Urine Epithelial Cells NONE /LPF NONE 05/27/2017 9:10pm 05/27/2017 10: 23pm Sodium Level 140 mmol/L 136-145 05/27/2017 9:10pm 05/27/2017 9:38pm Potassium Level 4.4 mmol/L 3.5-5.1 05/27/2017 9:10pm 05/27/2017 9:38pm Chloride Level 102 mmol/L 98-107 05/27/2017 9:10pm 05/27/2017 9:38pm Carbon Dioxide Level 28 mmol/L -05/27/2017 9:10pm 05/27/2017 9: 38pm Anion Gap 14.4 mmol/L 8-16 05/27/2017 9:10pm 05/27/2017 9:38pm Blood Urea Nitrogen 29 mg/dL H 7-26 05/27/2017 9:10pm 05/27/2017 9:38pm Creatinine 1.33 mg/dL H 0.72-1.25 05/27/2017 9:10pm 05/27/2017 9:38pm BUN/Creatinine Ratio 22 6-25 05/27/2017 9:10pm 05/27/2017 9:38pm Estimat Glomerular Filtration Rate 53 ML/MIN L 60- 05/27/2017 9:10pm 9:38pm Ranges were taken from the National Kidney Disease Education Program and the National Kid[employer] Foundation literature. Reference ranges: 60 or greater: Normal 16-59 (for 3 consecutive months): Chronic kidney disease 15 or less: Kidney failure Glucose Level 90 mg/dL 74-118 05/27/2017 9:10pm 05/27/2017 9:38pm Calcium Level 9.6 mg/dL 8.4-10.2 05/27/2017 9:10pm 05/27/2017 9:38pm Total Bilirubin 0.4 mg/dL 0.2-1.2 05/27/2017 9:10pm 05/27/2017 9:38pm Aspartate Amino Transf (AST/SGOT) 24 IU/L 5-34 05/27/2017 9:10pm 2017 9:38pm Alanine Aminotransferase (ALT/SGPT) 20 IU/L 0-55 05/27/2017 9:10pm 9:38pm Total Protein 7.7 g/dL 6.5-8.1 05/27/2017 9:10pm 05/27/2017 9:38pm Albumin 4.1 g/dL 3.5-5.0 05/27/2017 9:10pm 05/27/2017 9:38pm Globulin 3.6 g/dL H 2.3-3.5 05/27/2017 9:10pm 05/27/2017 9:38pm Albumin/Globulin Ratio 1.1 0.8-2.0 05/27/2017 9:10pm 05/27/2017 9: 38pm Alkaline Phosphatase 70 IU/L 40-150 05/27/2017 9:10pm 05/27/2017 9: 38pm Creatine Kinase 123 IU/L 30-200 05/28/2017 8:29am 05/28/2017 9:07am Creatine Kinase MB 1.40 ng/mL 0-5.0 05/28/2017 8:29am 05/28/2017 9: 21am Troponin I < 0.001 ng/mL 0-0.300 05/28/2017 8:29am 05/28/2017 9:21am Microbiology Results Procedure Source Organism/Result Collection Date/Time Result Date/Time Result Status Blood Culture Blood NO GROWTH AFTER 5 DAYS, FINAL REPORT 02/05/2017 6:20pm 02/10/2017 6:53pm Final Urine Culture Urine,Random STAPHYLOCOCCUS SP COAG NEG 02/05/2017 4:44pm 10:25am Final Procedures Procedure Status Date Provider(s) X-ray of chest, two views Active 02/05/[address] of abdomen and pelvis without contrast Active 02/05/17 PB ZARATE MD X-ray of chest, two views Active 05/27/17 PB ZARATE MD Encounters Encounter Location Arrival/Admit Date Discharge/Depart Date Attending Provider Discharged Inpatient (obs) [facility] 05/28/17 1:33am 1:57pm ABDOULAYE REID MD Discharged Inpatient [facility] 02/05/17 9:40pm 02/10/17 4:13pm PAULIE ROWELL MD
--- NOTE | 2017-07-11 18:18 | Diagnostic Imaging Report ---
FINGER RIGHT - 3 views HISTORY: Pain. Finger laceration COMPARISON: None available. FINDINGS: Bones: No acute displaced fracture. Osseous alignment is within normal limits. Joints: The joint spaces are well-maintained. Soft tissues: Diffuse soft tissue swelling and overlying bandage. IMPRESSION: No acute radiographic abnormality. Diffuse soft tissue swelling and overlying bandage. Signed by: Dr. Steve Reddy M.D. on 07/11/2017 6:15 PM
[2017-07-11] MEDS ORDERED: LIDOCAINE HCL 1% LOCAL INJ 20 ML VIAL INJ ONE (18:30)
[2017-07-11 18:46] VITALS: BP 130/69
== END 2017-07-11 18:53 | disposition home or self-care (01) ==
LOC: ER 16:58
DX: S61.210A Laceration without foreign body of right index finger without damage to nail, initial encounter (principal); W29.3XXA Contact with powered garden and outdoor hand tools and machinery, initial encounter; Y92.008 Other place in unspecified non-institutional (private) residence as the place of occurrence of the external cause; I48.91 Unspecified atrial fibrillation; L40.50 Arthropathic psoriasis, unspecified
CPT/HCPCS: 99283